=== PATIENT | male | born 1950 | race Caucasian/White ===

== ENCOUNTER → 2024-06-02 | Outpatient (CLI) | payer MEDICARE ==
--- NOTE | 2024-06-02 14:39 | US ---
EXAMINATION TYPE: US arterial LE single level DATE OF EXAM: 06/02/2024 2:26 PM COMPARISONS: None. CLINICAL INDICATION: Male, 74 years old with history of R09.89 ABN FOOT PULSE; Non healing wound left heel x 2 months, left DP doppler and pressure deferred due to bandage TECHNIQUE: Systolic pressures were taken of the upper and lower extremity arteries with ankle-brachia l indices calculated bilaterally. History of: Smoker: Previous Hypertension: Yes Diabetic: No Hyperlipidemia: Yes TIA/CVA: No Previous Vascular Surgery: No GA: No Vascular Ulcers: Left Claudication: No Gangrene: No FINDINGS: Doppler Waveforms: Right: Biphasic Left: Multiphasic Brachial Artery systolic pressure: Right: 116 Left: 122 Posterior Tibial artery systolic pressure: Right: 144 Left: 147 Dorsalis Pedis artery systolic pressure: Right: 131 Left: deferred due to bandage Ankle-Brachial Indices: Right: 1.18 Left: 1.20 IMPRESSION: CANDE: Right: Normal 0.9 - 1.4, Recommendation: None Left: Normal 0.9 - 1.4, Recommendation: None [facility], , 06/02/2024 2:37 PM
== END | disposition home or self-care (01) ==
LOC: RADUSWWP 13:35
PROVIDERS: ATTEND Family Medicine
DX: R09.89 Other specified symptoms and signs involving the circulatory and respiratory systems (principal)
CPT/HCPCS: 93922